=== PATIENT | female | born 1995 | race Caucasian/White ===

== ENCOUNTER 2017-01-28 09:38 | Emergency (ER) | payer BC ==
[2017-01-28 09:44] VITALS: RESP 16; TEMP 98.2
--- NOTE | 2017-01-28 09:58 | EDPHY ---
H & P Time Seen by Provider: 01/28/17 09:54 HPI/ROS: CHIEF COMPLAINT: Left foot injury HISTORY OF PRESENT ILLNESS: Rolled last night, pain and tenderness on the lateral surface worse with weight-bearing REVIEW OF SYSTEMS: No ankle or knee injuries. PAST MEDICAL HISTORY: Celiac, wisdom tooth surgery Social history: Student General Appearance: Alert and conversant, cooperative. Normal range of motion of left knee and ankle. No tenderness on tib-fib or lateral or medial malleolus. Swelling and tenderness lateral side of the left foot especially over base of the 5th metatarsal. Normal dorsalis pedis pulse and capillary refill, normal motor and sensory to light touch. Skin intact without laceration. Emergency Department course/MDM: Ibuprofen 600, x-ray of the left foot and ankle. Smoking Status: Current every day smoker Constitutional: Initial Vital Signs Temperature (C) 36.8 C 01/28/17 09:41 Heart Rate 71 01/28/17 09:41 Respiratory Rate 16 01/28/17 09:41 Blood Pressure 109/75 01/28/17 09:41 O2 Sat (%) 94 01/28/17 09:41 O2 Delivery Mode Room Air Allergies/Adverse Reactions: No Known Allergies Allergy (Verified 01/28/17 09:40) Home Medications: Medication Instructions Recorded NK [No Known Home Meds] 01/28/17 MDM/Departure - MDM Imaging Results: Imaging Impressions Ankle X-Ray 01/28/17 09:47 Impression: Nothing acute identified. Foot X-Ray 01/28/17 10:02 Impression: Nothing acute identified. - Depart Disposition: Home, Routine, Self-Care Clinical Impression: Sprain of left foot Qualifiers: Encounter type: initial encounter Qualified Code(s): S93.602A - Unspecified sprain of left foot, initial encounter Condition: Good Instructions: Foot Sprain (ED) Additional Instructions: Follow-up with Orthopedics or student health center in a week if you're not improving. Hard shoe as needed, otherwise activity as tolerated. Ibuprofen 600 mg by mouth every 8 hours as needed for the next week. Referrals: NONE *PRIMARY CARE P,. [Primary Care Provider] - As per Instructions [facility] [Clinic] - As per Instructions Rodo Goodman MD [Medical Doctor] - As per Instructions
[2017-01-28] MEDS ORDERED: IBUPROFEN 600 MG TAB PO ONE (10:49)
[2017-01-28 11:08] VITALS: BP 127/83; PULSE 77; O2SAT 98
== END 2017-01-28 11:07 | disposition home or self-care (01) ==
DX: S93.602A Unspecified sprain of left foot, initial encounter (principal); F17.200 Nicotine dependence, unspecified, uncomplicated; X58.XXXA Exposure to other specified factors, initial encounter
CPT/HCPCS: L3260